=== PATIENT | female | born 1965 | race Caucasian/White ===

== ENCOUNTER → 2018-03-02 | Outpatient (REF) | payer BC | LOC: M LAB REF 16:37 | DX: E87.6 Hypokalemia (principal); I10 Essential (primary) hypertension | CPT/HCPCS: 84244 ==

== ENCOUNTER → 2018-12-03 | Outpatient (REF) | payer BC, SELFPAY | LOC: M LAB REF 12:01 | PROVIDERS: ATTEND Internal Medicine | DX: I10 Essential (primary) hypertension (principal) ==

== ENCOUNTER → 2019-03-19 | Outpatient (REF) ==
--- NOTE | 2019-03-19 15:55 | REP ---
PARTIAL LUMBAR SPINE, THREE VIEWS: HISTORY: Degenerative disc disease. There is no acute fracture or subluxation. The L4-5 and L5-S1 intervertebral discs are decreased in height consistent with disc degeneration. Osteophytes are present on L3 through L5. IMPRESSION: Degenerative change as described above. Electronically Signed by Dyllan Garcia MD 03/19/2019 03:59 P
== END ==
LOC: M SMT 14:21
PROVIDERS: ATTEND Internal Medicine
DX: M51.36 Other intervertebral disc degeneration, lumbar region (principal)

== ENCOUNTER → 2021-02-10 | Outpatient (CLI) | payer OTHER | LOC: M LABSMTC 09:42 | PROVIDERS: ATTEND Physician Assistant | DX: Z01.812 Encounter for preprocedural laboratory examination (principal); Z20.822 Contact with and (suspected) exposure to COVID-19 ==

== ENCOUNTER → 2022-09-25 | Outpatient (CLI) | payer OTHER ==
[~2022-09-25] MED LIST: ATOR1TAB19 PO; BISO5TAB14 PO; CHLO125TA PO; DULO1CAP6 PO; LOSA100T45 PO; OMEP40CA5 PO
== END ==
LOC: M LABSMTC 11:43
PROVIDERS: ATTEND Anesthesiology
DX: Z01.818 Encounter for other preprocedural examination (principal); Z11.52 Encounter for screening for COVID-19

== ENCOUNTER 2022-09-27 06:57 | Day surgery (SDC) | payer OTHER ==
[~2022-09-27] VITALS: Ht 157.5 cm; Wt 72.5 kg
[2022-09-27] MEDS: OFLOXACIN 0.3 % (OCUFLOX) OPTH SOL 5ML OD SCH (08:05)
[2022-09-27] MEDS: PHENYLEPHRINE 2.5% OPHTH SOL 2ML OD SCH (08:05)
[2022-09-27] MEDS: CYCLOPENTOLATE 1% OPHTH SOLN 2 ML BTL OD SCH (08:06)
[2022-09-27] MEDS: TROPICAMIDE 1% OPHTH SOLN 15ML OD SCH (08:06)
[2022-09-27] MEDS: PROPARACAINE 0.5% OPHTH SOL 15ML OD ONE (08:06)
[2022-09-27] MEDS ORDERED: fentaNYL 100 MCG/2 ML INJECTION As Ordered ONE (09:21)
[2022-09-27] MEDS ORDERED: MIDAZOLAM INJ 2MG/2ML VIAL (J2250 PER 1MG) As Ordered ONE (09:21)
[2022-09-27] MEDS: LIDOCAINE 1% 1ML PF SYRINGE (OR EYE CASES) As Ordered ONE (09:26)
[2022-09-27] MEDS: CEFUROXIME 1MG/0.1ML INTRACAMERAL INJ As Ordered ONE (09:26)
[2022-09-27 09:40] VITALS: BP 115/69
== END 2022-09-27 10:03 | disposition home or self-care (01) ==
LOC: M SDC 06:57
PROVIDERS: ATTEND Ophthalmology
DX: H25.11 Age-related nuclear cataract, right eye (principal); I10 Essential (primary) hypertension; E78.00 Pure hypercholesterolemia, unspecified; K21.9 Gastro-esophageal reflux disease without esophagitis; R51.9 Headache, unspecified; Z79.899 Other long term (current) drug therapy; Z96.82 Presence of neurostimulator

== ENCOUNTER → 2022-11-24 | Outpatient (CLI) | payer OTHER | LOC: M LABSMTC 11:02 | PROVIDERS: ATTEND Anesthesiology | DX: Z01.818 Encounter for other preprocedural examination (principal); Z11.52 Encounter for screening for COVID-19 ==

== ENCOUNTER 2022-11-29 06:14 | Day surgery (SDC) | payer OTHER ==
[~2022-11-29] VITALS: Ht 157.5 cm; Wt 75.4 kg
[~2022-11-29 06:14] MED LIST changes: +PROPARACAINE 0.5% OPHTH SOL 15ML OS ONE
[2022-11-29] MEDS ORDERED: ACETYLCHOLINE OPHTH SOLN 1% 2ML (MIOCHOL-E) As Ordered ONE (06:34)
[2022-11-29] MEDS ORDERED: LIDOCAINE 1% SDV 5ML VIAL As Ordered ONE (06:34)
[2022-11-29] MEDS ORDERED: CEFUROXIME 1MG/0.1ML INTRACAMERAL INJ As Ordered ONE (06:34)
[2022-11-29] MEDS: OFLOXACIN 0.3 % (OCUFLOX) OPTH SOL 5ML OS SCH ×3 (06:43→07:19)
[2022-11-29] MEDS: TROPICAMIDE 1% OPHTH SOLN 15ML OS SCH ×3 (06:43→07:19)
[2022-11-29] MEDS: PHENYLEPHRINE 2.5% OPHTH SOL 2ML OS SCH ×3 (06:43→07:19)
[2022-11-29] MEDS: CYCLOPENTOLATE 1% OPHTH SOLN 2ML BTL OS SCH ×3 (06:44→07:19)
[2022-11-29] MEDS ORDERED: MIDAZOLAM INJ 2MG/2ML VIAL As Ordered ONE (07:10)
[2022-11-29 07:50] VITALS: BP 127/69
== END 2022-11-29 08:05 | disposition home or self-care (01) ==
LOC: M SDC 06:14
PROVIDERS: ATTEND Ophthalmology
DX: H25.12 Age-related nuclear cataract, left eye (principal); I10 Essential (primary) hypertension; E78.5 Hyperlipidemia, unspecified; K21.9 Gastro-esophageal reflux disease without esophagitis; Z79.899 Other long term (current) drug therapy; Z91.030 Bee allergy status
CPT/HCPCS: 66984; J0697; J2250; V2632